=== PATIENT | female | born 1930 | race Caucasian/White ===

== ENCOUNTER 2017-12-02 20:50 | Observation (INO) | payer OTHER, MEDICARE ==
[~2017-12-02] VITALS: Ht 152.4 cm; Wt 54.4 kg
[~2017-12-02 20:50] MED LIST: ASPIR 8181 MG PO; DESYREL50 MG PO; DONEPEZIL HCL10 MG PO; LISINOPRIL10 MG PO; MIRTAZAPINE15 M1 PO; MIRTAZAPINE15 MG PO; MIRTAZAPINE7.5 MG PO; RISPERIDONE1 MG PO
--- NOTE | 2017-12-02 20:56 | ED GENERAL ADULT ---
History of Present Illness General Chief Complaint: General Adult Stated Complaint: BIBA ?UNRESPONSIVE Source: old records, EMS Exam Limitations: clinical condition Vital Signs & Intake/Output Vital Signs & Intake/Output Vital Signs Date Time Temp Pulse Resp B/P B/P Pulse O2 O2 Flow FiO2 Mean Ox Delivery Rate 12/02 2231 92.8 72 30 176/77 100 Nasal 2.0L Cannula 12/02 2145 95.8 76 28 186/81 100 Nasal 2.0L Cannula 12/02 2114 100 Nasal 2.0L Cannula 12/02 2100 93.0 79 32 160/60 96 Nasal 4.0L Cannula Allergies Coded Allergies: NO KNOWN ALLERGIES (08/30/15) Reconcile Medications Aspirin (Ecotrin) 81 MG ECT 1 TAB PO DAILY HEART HEALTH (Reported) DONEPEZIL HCL (Donepezil HCl) 10 MG TAB 1 TAB PO QPM DEMENTIA (Reported) Lisinopril 10 MG TAB 1 TAB PO DAILY BP (Reported) Mirtazapine 15 MG ODT 1 TAB PO AT BEDTIME SLEEP (Reported) Triage Nurses Notes Reviewed? yes HPI: Patient has a history of dementia and lives at home with a 24-hour healthcare. Patient has had increasing weakness throughout the day. Sometime this afternoon she began to drag her right leg. This evening she was found unresponsive. Patient was brought in for evaluation. Unable to obtain any further history. Past History Travel History Traveled to [place] past 21 day No Medical History Any Pertinent Medical History? see below for history Neurological: dementia EENT: NONE Cardiovascular: hypertension Respiratory: NONE Gastrointestinal: NONE Hepatic: NONE Renal: NONE Musculoskeletal: NONE Psychiatric: NONE Endocrine: NONE Blood Disorders: NONE Cancer(s): NONE WARP CHANGER/Reproductive: NONE History of MRSA: No History of VRE: No History of CDIFF: No Surgical History Surgical History: non-contributory Psychosocial History Who do you live with Daughter Services at Home None (daughter in law helps her) What is your primary language Pakistani Tobacco Use: Cognitive Impairment Family History Hx Contributory? No Review of Systems Review of Systems Constitutional: Reports: see HPI. Physical Exam Physical Exam General Appearance: lethargic Head: evidence of injury, ecchymosis Eyes: Bilateral: other (UNEQUAL PUPILS). Ears, Nose, Throat: DRY MUCOSA Neck: normal inspection, supple Respiratory: normal breath sounds, lungs clear Cardiovascular: regular rate/rhythm, normal peripheral pulses Gastrointestinal: normal bowel sounds, soft Extremities: normal capillary refill, normal range of motion, no edema, ECCHYMOSIS Neurologic/Psych: UNRESPONSIVE TO PAINFUL STIMULAE Core Measures ACS in differential dx? No CVA/TIA Diagnosis: Yes Reason tPA not ordered Medical Contraindication Swallow Evaluation Fail Sepsis Present: No Sepsis Focused Exam Completed? No Progress Differential Diagnoses I considered the following diagnoses in my evaluation of the patient: Plan of Care: Orders Procedure Date/time Status Nothing by Mouth 12/03 B Active Pathway - chart 12/02 2235 Active House Staff 12/02 2235 Active Patient Data 12/02 2235 Active Patient Data 12/[address] in observation 12/02 2219 Active ED Holding Orders 12/02 2219 Active Vital Signs 12/02 2219 Active Code Status 12/02 2219 Active Telemetry/Alkylation Operator 12/02 2101 Active Straight Cath 12/02 2057 Complete EKG 12/02 2057 Active VTE Mechanical Prophylaxis 12/02 UNK Active Current Medications Sig/Karly Start time Last Medication Dose Stop Time Status Admin Acetaminophen 650 MG Q6P PRN 12/02 224 CANr (Tylenol) Acetaminophen 1,000 MG Q6PRN PRN 12/02 224 UNVr (Ofirmev) Lorazepam 1 MG Q2 HRS NEEDED PRN 12/02 2244 UNVr (Ativan) Morphine Sulfate 2 MG Q2P PRN 12/02 2244 UNVr (Morphine) Laboratory Tests 12/02/172057: Troponin I Cancelled, CBC w Diff Cancelled, WBC Cancelled, RBC Cancelled, Hgb Cancelled, Hct Cancelled, MCV Cancelled, MCH Cancelled, RDW Cancelled, Plt Count Cancelled, MPV Cancelled, PUBS MCHC Cancelled, Urine Color Cancelled, Urine Clarity Cancelled, Urine pH Cancelled, Ur Specific [place] Cancelled, Urine Protein Cancelled, Urine Ketones Cancelled, Urine Nitrite Cancelled, Urine Bilirubin Cancelled, Urine Urobilinogen Cancelled, Ur Leukocyte Esterase Cancelled, Ur Microscopic Cancelled, Urine Hemoglobin Cancelled, Urine Glucose Cancelled Diagnostic Imaging: Viewed by Me: CT Scan. Discussed w/RAD: CT Scan. Radiology Impression: PATIENT: ADAM MOCTEZUMA PRESENT AGE: 87 PATIENT ACCOUNT NO: [id number] : 31 LOCATION: [facility] ORDERING PHYSICIAN: Yamileth Quispe MD SERVICE DATE: 12/02/17 EXAM TYPE: CAT - CT HEAD WO IV CONTRAST EXAMINATION: CT HEAD WITHOUT CONTRAST CLINICAL INFORMATION: Unresponsive. Unequal pupils. Right-sided facial ecchymosis. COMPARISON: 01/26/2016. TECHNIQUE: Contiguous axial images of the brain were obtained without IV contrast. DLP: 603 mGy-cm. FINDINGS: There is a large parenchymal hemorrhage within the left cerebral hemisphere measuring approximately 8 cm in greatest dimension. There is surrounding edema. There is shift of midline structures to the right by approximately 1.3 cm. There is effacement of the sulci on the left. The left lateral ventricle is compressed. There is effacement to the suprasellar space. There is blood within the occipital horn. There is also a small amount of blood within the right occipital horn. There is extra-axial blood on the left, likely subdural and subarachnoid. There is also a small focus of intraparenchymal blood measuring approximately 6 mm in the right frontal lobe. IMPRESSION: Large left intraparenchymal hemorrhage with surrounding edema, midline shift, extra-axial and intraventricular blood. The aforementioned was communicated to Dr. Quispe at 2141 hours. DICTATED BY: Yosef Raymundo MD DATE/TIME DICTATED:12/02/172131 VULNERABILITY ASSESSMENT ANALYST:ZENON DATE/TIME TRANSCRIBED:12/02/172131 CONFIDENTIAL, DO NOT COPY WITHOUT APPROPRIATE AUTHORIZATION. <Electronically signed in Other Vendor System> SIGNED BY: Yosef Raymundo MD 12/02/172144 Initial ED EKG: none Comments: Had a long discussion with her son and [id number]. CAT scan reviewed. Question up and answered. CODE STATUS was made comfort measures. Patient will remain in the hospital tonight and it isn't hospice consult tomorrow. Departure Departure Disposition: STILL A PATIENT Condition: Stable Clinical Impression Primary Impression: Hemorrhagic cerebrovascular accident (CVA) Referrals: [place] DUMONT,Deion Rios (PCP/Family) Departure Forms: Customer Survey General Discharge Information Observation Note Spoke With: Raghavendra Randolph MD Physician Advisor Notified: GABY DUMONT,YAMILETH [address] Place Patient In: Non-ED OBS Care Area Rationale for Observation: My rational for observation is as follows [HEMPORRHAGIC CVA, COMFORT MEASURES, HOSPICE CONSULTATION]. Critical Care Note Critical Care Note Critical Care Time: mins: (90 MIN)
--- NOTE | 2017-12-02 21:45 | CT SCAN REPORT ---
EXAMINATION: CT HEAD WITHOUT CONTRAST CLINICAL INFORMATION: Unresponsive. Unequal pupils. Right-sided facial ecchymosis. COMPARISON: 01/26/2016. TECHNIQUE: Contiguous axial images of the brain were obtained without IV contrast. DLP: 603 mGy-cm. FINDINGS: There is a large parenchymal hemorrhage within the left cerebral hemisphere measuring approximately 8 cm in greatest dimension. There is surrounding edema. There is shift of midline structures to the right by approximately 1.3 cm. There is effacement of the sulci on the left. The left lateral ventricle is compressed. There is effacement to the suprasellar space. There is blood within the occipital horn. There is also a small amount of blood within the right occipital horn. There is extra-axial blood on the left, likely subdural and subarachnoid. There is also a small focus of intraparenchymal blood measuring approximately 6 mm in the right frontal lobe. IMPRESSION: Large left intraparenchymal hemorrhage with surrounding edema, midline shift, extra-axial and intraventricular blood. The aforementioned was communicated to Dr. Quispe at 2141 hours.
--- NOTE | 2017-12-03 00:55 | History & Physical ---
Gee DUMONT,[facility] 12/03/17 0054: General Information and HPI MD Statement: I have seen and personally examined ADAM MOCTEZUMA and documented this H&P. The patient is a 87 year old F who presented with a patient stated chief complaint of [unresponsiveness]. Source of Information: family Exam Limitations: unable to give history History of Present Illness: Mr. Moctezuma is a 87-year-old lady with past medical history significant for hypertension and dementia is brought into [facility] after she was found unresponsive at home. History was obtained from the son and [id number] and according to them patient was in her usual state of health until yesterday afternoon when she started complaining of headache(was holding her head with hands), she was brought to her bed and around 2 PM she became unresponsive and was brought into the hospital by EMS. Allergies/Medications Allergies: Coded Allergies: NO KNOWN ALLERGIES (08/30/15) Home Med list Aspirin (Ecotrin) 81 MG ECT 1 TAB PO DAILY HEART HEALTH (Reported) DONEPEZIL HCL (Donepezil HCl) 10 MG TAB 1 TAB PO QPM DEMENTIA (Reported) Lisinopril 10 MG TAB 1 TAB PO DAILY BP (Reported) Mirtazapine 15 MG ODT 1 TAB PO AT BEDTIME SLEEP (Reported) Past History Travel History Traveled to [place] past 21 day No Medical History Neurological: dementia EENT: NONE Cardiovascular: hypertension Respiratory: NONE Gastrointestinal: NONE Hepatic: NONE Renal: NONE Musculoskeletal: NONE Psychiatric: NONE Endocrine: NONE Blood Disorders: NONE Cancer(s): NONE CHARTER BOAT CAPTAIN/Reproductive: NONE History of MRSA: No History of VRE: No History of CDIFF: No Surgical History Surgical History: non-contributory Past Family/Social History Psychosocial History Who Do You Live With? self Services at Home: None (daughter in law helps her) Primary Language: Greenlandic Living Will? unknown Power of Paper Roller/HCP? yes Functional Ability Ambulation: independent IADLs Independent: telephone. Needs Assist: shopping, housework, finances, food prep, transportation, medication admin. Review of Systems Review of Systems Constitutional: Reports: no symptoms (Unable to obtain hx). Exam & Diagnostic Data Last 24 Hrs of Vital Signs/I&O Vital Signs Date Time Temp Pulse Resp B/P B/P Pulse O2 O2 Flow FiO2 Mean Ox Delivery Rate 01/08 2232 92.8 72 30 176/77 100 Nasal 2.0L Cannula 12/02 2145 95.8 76 28 186/81 100 Nasal 2.0L Cannula 12/02 2114 100 Nasal 2.0L Cannula 12/02 2100 93.0 79 32 160/60 96 Nasal 4.0L Cannula Intake & Output 12/03 0800 12/03 0000 12/02 1600 Intake Total Output Total Balance Number 1 Bowel Movements Patient 120 lb Weight Weight Estimated Measurement Method Physical Exam General Appearance Caachetic, Comatose, Non resposive to verbal stimuli or touch HEENT minimally reactive pupils Cardiovascular Regular Rate, Normal S1, Normal S2 Lungs Normal Air Movement Abdomen Normal Bowel Sounds, Soft, No Tenderness Extremities No Clubbing, No Cyanosis, Normal Pulses, bruise on left knee Last 24 Hrs of Labs/Marcelino: Laboratory Tests 12/02/17 2358: Lactic Acid Cancelled 12/02/172057: Troponin I Cancelled, CBC w Diff Cancelled, WBC Cancelled, RBC Cancelled, Hgb Cancelled, Hct Cancelled, MCV Cancelled, MCH Cancelled, RDW Cancelled, Plt Count Cancelled, MPV Cancelled, PUBS MCHC Cancelled, Urine Color Cancelled, Urine Clarity Cancelled, Urine pH Cancelled, Ur Specific [place] Cancelled, Urine Protein Cancelled, Urine Ketones Cancelled, Urine Nitrite Cancelled, Urine Bilirubin Cancelled, Urine Urobilinogen Cancelled, Ur Leukocyte Esterase Cancelled, Ur Microscopic Cancelled, Urine Hemoglobin Cancelled, Urine Glucose Cancelled Diagnostic Data Other Results CT HEAD WO IV CONTRAST IMPRESSION: Large left intraparenchymal hemorrhage with surrounding edema, midline shift, extra-axial and intraventricular blood. The aforementioned was communicated to Dr. Quispe at 2141 hours. Assessment/Plan Assessment: Mr. Moctezuma is a 87-year-old lady with past medical history significant for hypertension and dementia is brought into [place] ER after she was found unresponsive at home. A/P; 1. CVA - CAT scan of the head showed massive intracranial bleed(large left intraparenchymal hemorrhage with surrounding edema, midline shift, extra-axial and intraventricular blood). - Goals of care were discussed with the son and [id number] and after a long discussion patient was made comfort measures. - Will admit the pt to Gen/Med floor. - Will be evaluated by hospice in the morning. - IV morphine as needed for pain - Ativan as needed for anxiety/agitation. - Scopolamine Patch - Continue supplemental Oxygen. Patient is comfort measures. As Ranked By This Provider Problem List: 1. Hemorrhagic cerebrovascular accident (CVA) Core Measures/Misc (08/11) Acute Coronary Syndrome ACS Diagnosis: No Congestive Heart Failure Congestive Heart Failure Diagnosis No Cerebrovascular Accident CVA/TIA Diagnosis: Yes Swallow Evaluation Fail VTE (View Protocol) VTE Risk Factors Age>40 No Mechanical VTE Prophylaxis d/t N/A MechProphylax Ordered No VTE Pharm Prophylaxis d/t Hemorrhagic CVA Sepsis (View protocol) Sepsis Present: No Keke Bradshaw 12/03/17 0056: Resident Review Statement Resident Statement: examined this patient, discussed with internet ecommerce specialist Other Findings: Patient is 87-year-old woman past medical history significant for hypertension and worsening dementia presented to the ED through ambulance after found unresponsive at home. As per family, patient was in usual state of health until 12 PM yesterday when the caregiver found found that she was complaining of severe headaches and afterwards became lethargic. The caregiver helped her to her bed. At around 2 PM she became unresponsive, EMS was called in. No hx of recent falls/ fractures. On her way to the ambulance 0.4 mg Narcan was given by EMS. In the ER patient remained unresponsive(both verbal and and painful stimuli), stat CT scan revealed large left intraparenchymal hemorrhage with surrounding edema, midline shift, extra-axial and intraventricular blood. On examination General Appearance:alert oriented 3, not in acute distress, Skin: grossly normal HEENT:unequal pupils minimally reactive Neck: Supple, No JVD Cardiovascular: Regular Rate, Normal S1, Normal S2. Lungs: Equal breath sounds bilaterally on lung exam without any rhonchi or wheeze. Abdomen: Normal Bowel Sounds. Neurological:cannot be ellicited . Assessment and plan this is an elderly 87-year-old woman with past medical history significant for hypertension(currently not on any medications) history of worsening dementia presented to the ED after found unresponsive at home. CAT scan of the head showed massive intracranial bleed(large left intraparenchymal hemorrhage with surrounding edema, midline shift, extra-axial and intraventricular blood). Goals of care were discussed with the son and [id number] after the imaging findings, and after detailed discussion patient was made comfort care Massive intracranial bleed(large left intraparenchymal hemorrhage with surrounding edema and midline shift * Patient is currently comfort care will be admitted to the GenMed floor, * Start IV morphine as needed for pain and respiratory distress. * Ativan as needed for respiratory distress/agitated. * scoplamine patch as needed for seccretions. * dulcolex suppository as neede for constipation. * Contiue oxgen. * Hospice team will evaluate the patient in the morning. * Pastoral services were called as per family request. CODE STATUS comfort care Raghavendra Randolph 12/03/17 0320: Attending MD Review Statement Attending Statement Attending MD Statement: examined this patient, discuss w/resident/PA/OPTICS ENGINEER, agreed w/resident/PA/OPTICS ENGINEER, discussed with family, reviewed EMR data (avail), reviewed images, amended to note Attending Assessment/Plan: CC: AMS 87-year-old female with past medical history significant for dementia presented in ER for found unresponsive.. Patient's history was mostly given by patient's family, patient has a waxing and waning mental status secondary to her dementia, her son saw her and fell this morning eating breakfast but she looked very tired so the health aide made her sleep for some time, after that patient was not waking up so they thought she is more lethargic and sleepy but next time when they checked patient was slumped over, generalized weakness was observed so patient was rushed to ER. Patient has 24-hour caregivers at home, family does not recall any fall or head trauma but they have noticed a bruise around her right eye. At arrival in ER patient's pupils were unequal, fingerstick 300. 0.4 of Narcan given with no effect. CT head without contrast was immediately obtained which showed Large left intraparenchymal hemorrhage with surrounding edema, midline shift, extra-axial and intraventricular blood. A detailed discussion was done with family and ER physician regarding goals of care and decision of comfort care measures only was made. Patient does not respond to painful stimuli, pupils unequal, otherwise CVS RS exam unremarkable. + Intracranial hemorrhage with midline shift + Comfort care measures - Place in observation on general medicine - When necessary morphine for respiratory distress or indication for any distress due to pain - When necessary Ativan for agitation - Ask for pastoral services - Dulcolax suppository if constipation - O2 by nasal cannula at 2 L - Hospice care consult in a.m. - Glycopyrrolate or scopolamine patch.
[2017-12-03 08:09] VITALS: BP 176/81
[2017-12-03 15:31] VITALS: BP 158/64
== END 2017-12-03 18:25 | disposition hospice, home (50) ==
LOC: ERH 20:50 → ERHI 22:20 → 2NA 22:20 → ERHI 22:20 → ENRESERV 12-03 16:25 → ENTRNSPT 12-03 17:54 → 2NA 12-03 18:13 → CMPTRNSPT 12-03 18:33
DX: I61.9 Nontraumatic intracerebral hemorrhage, unspecified (principal); Z51.5 Encounter for palliative care; I10 Essential (primary) hypertension; F03.90 Unspecified dementia, unspecified severity, without behavioral disturbance, psychotic disturbance, mood disturbance, and anxiety; Z79.82 Long term (current) use of aspirin
CPT/HCPCS: 99291

== ENCOUNTER 2017-12-03 18:26 | Inpatient (IN) | payer OTHER ==
[2017-12-03 22:14] VITALS: BP 144/70
[2017-12-04 06:02] VITALS: BP 160/70
--- NOTE | 2017-12-04 15:17 | PN- Hospice ---
Subjective Subjective: No family at bedside. Pt responsive to tactile stimulation by withdrawing right lower extremity. She is nonverbal and does not open eyes. She has appears comfortable and has not required any as needed medications. Review of Systems Constitutional: Reports: see HPI. Objective Last 24 Hrs of Vital Signs/I&O Vital Signs Date Time Temp Pulse Resp B/P B/P Pulse O2 O2 Flow FiO2 Mean Ox Delivery Rate 12/04 601 97.6 75 16 160/70 95 Room Air 12/03 2242 Room Air 12/03 2216 100 Room Air 12/03 2214 97.3 71 20 144/70 100 12/03 1903 Nasal 2.0L Cannula Intake & Output 12/04 1600 12/04 0800 12/04 0000 Intake Total 0 0 Output Total Balance 0 0 Intake, Oral 0 0 Number 2 2 Bowel Movements Physical Exam General Appearance: well developed/nourished, no apparent distress, lethargic Head: ecchymosis (right side of face) Ears, Nose, Throat: dry mucous membranes Respiratory: no respiratory distress, lungs clear Cardiovascular: regular rate/rhythm, normal peripheral pulses Abdomen: soft, non-tender Extremities: no edema, no mottling Skin: flushed, no diaphoresis Current Medications: Current Medications Sig/Karly Start time Last Medication Dose Route Stop Time Status Admin Acetaminophen 650 MG Q4P PRN 12/03 1845 AC MA Artificial Tears 2 GTT Q2P PRN 12/03 184 AC OU Bisacodyl 10 MG DAILY NEEDED PRN 12/03 1845 AC MA Glycerin 2 SPRAY Q4P PRN 12/03 184 AC PO Glycerin/Mineral Oil 1 JESSICA Q8P PRN 12/03 184 AC TOP Glycopyrrolate 400 MCG Q4P PRN 12/03 1845 AC IV Lorazepam 1 MG Q2 HRS NEEDED PRN 12/03 1900 AC IV Morphine Sulfate 2 MG Q2P PRN 12/03 1845 AC IV Scopolamine HBr 1 PAT Q72 12/06 1000 AC TOP Diagnostic Data Recent Imaging Studies: Head CT 12/02/17: Large left intraparenchymal hemorrhage with surrounding edema, midline shift, extra-axial and intraventricular blood. Assessment/Plan Assessment/Recommendations: Mrs. Mclean is an 87-year-old lady with past medical history significant for hypertension and dementia admitted for hospice care from the ED due to massive intracranial bleed (large left intraparenchymal hemorrhage with surrounding edema, midline shift, extra-axial and intraventricular blood). She is currently comfortable. Continue as needed medications. Problem List: 1. Hemorrhagic cerebrovascular accident (CVA)
[2017-12-05 06:43] VITALS: BP 100/50
--- NOTE | 2017-12-05 14:29 | PN- Hospice ---
Subjective Subjective: Son was in earlier today. Pt. remains unresponsive, appears comfortable. She has not needed any as needed medication this shift (rreceived morphine x 2 on nights). Still making urine. Review of Systems Constitutional: Reports: see HPI. Objective Last 24 Hrs of Vital Signs/I&O Vital Signs Date Time Temp Pulse Resp B/P B/P Pulse O2 O2 Flow FiO2 Mean Ox Delivery Rate 12/05 0643 97.8 80 20 100/50 87 Room Air Physical Exam General Appearance: no apparent distress, comfortable Head: ecchymosis (under right eye) Ears, Nose, Throat: oral mucosa dry Respiratory: no respiratory distress, no congestion Cardiovascular: regular rate/rhythm Extremities: no edema, no mottling Current Medications: Current Medications Sig/Karly Start time Last Medication Dose Route Stop Time Status Admin Acetaminophen 650 MG Q4P PRN 12/03 1845 AC MN Artificial Tears 2 GTT Q2P PRN 12/03 1845 AC OU Bisacodyl 10 MG DAILY NEEDED PRN 12/03 1845 AC MN Glycerin 2 SPRAY Q4P PRN 12/03 1845 AC PO Glycerin/Mineral Oil 1 JESSICA Q8P PRN 12/03 1845 AC TOP Glycopyrrolate 400 MCG Q4P PRN 12/03 1845 AC IV Lorazepam 1 MG Q2 HRS NEEDED PRN 12/03 1900 AC IV Morphine Sulfate 2 MG Q2P PRN 12/03 1845 AC 12/05 IV 0456 Scopolamine HBr 1 PAT Q72 12/06 1000 AC TOP Assessment/Plan Assessment/Recommendations: Mrs. Mclean is an 87-year-old lady with past medical history significant for hypertension and dementia admitted for hospice care from the ED due to massive intracranial bleed (large left intraparenchymal hemorrhage with surrounding edema, midline shift, extra-axial and intraventricular blood). She is currently comfortable. Continue as needed medications. Problem List: 1. Hemorrhagic cerebrovascular accident (CVA)
[2017-12-06 06:19] VITALS: BP 110/50
--- NOTE | 2017-12-06 15:32 | Discharge Summary ---
Visit Information Visit Dates Admission Date: 12/03/17 Discharge Date: 12/06/17 Hospital Course Course Attending Physician: Raghavendra Randolph MD Primary Care Physician: Deion Peter MD Hospital Course: Mrs. Mclean is an 87-year-old lady with past medical history significant for hypertension and dementia admitted for hospice care from the ED due to massive intracranial bleed (large left intraparenchymal hemorrhage with surrounding edema, midline shift, extra-axial and intraventricular blood). She was kept comfortable with as needed morphine for dyspnea and ativan for anxiety until she passed peacefully. Allergies: Coded Allergies: NO KNOWN ALLERGIES (08/30/15) Disposition Summary Disposition Principal Diagnosis: Hemorrhagic Cerebrovascular Accident Additional Diagnosis: Hypertension Discharge Disposition: Discharge Instructions General Discharge Information Code Status: Hospice Patient's Diet: N/A Patient's Activity: N/A Follow-Up Instructions/Appts: N/A Copies To: Deion Peter MD
== END 2017-12-06 08:28 | disposition expired | DRG 66 ==
LOC: 2NA 18:26 → ENTRNSPT 12-06 10:53 → EDTRNSPTSTS 12-06 10:56 → EDTRNSPT 12-06 10:56 → CMPTRNSPT 12-06 11:10
DX: I61.9 Nontraumatic intracerebral hemorrhage, unspecified (principal); F03.90 Unspecified dementia, unspecified severity, without behavioral disturbance, psychotic disturbance, mood disturbance, and anxiety; Z51.5 Encounter for palliative care
CPT/HCPCS: 2NAP